=== PATIENT | female | born 1975 | race Two or more races ===

== ENCOUNTER 2024-02-23 18:05 | Emergency (ER) | payer MEDICAID ==
[~2024-02-23] VITALS: Ht 167.6 cm; Wt 99.8 kg
[2024-02-23] MEDS ORDERED: ACETAMINOPHEN 325 MG TABLET ONE (18:57)
[2024-02-23] MEDS: ACETAMINOPHEN 325 MG TABLET PO ONE (18:59)
[2024-02-23] MEDS ORDERED: IV NS 0.9% 250 ML IV ONE (19:18)
[2024-02-23] MEDS ORDERED: IOHEXOL-300 100 ML VIAL IV ONE (19:18)
[2024-02-23 19:47] LABS: BASOPHILS % (AUTO) 0.2 % (0.0-2.0); EOSINOPHILS # (AUTO) 0.1 K/uL (0.0-0.7); EOSINOPHILS % (AUTO) 0.9 % (0.0-6.0); HEMATOCRIT 34 % (33-45); HEMOGLOBIN 11.7 g/dL (11.5-14.8); LYMPHOCYTES % (AUTO) 22.9 % (20.0-44.0); MEAN CORPUSCULAR HEMOGLOBIN 28 PG (26.0-33.0); MEAN CORPUSCULAR HGB CONC 34 g/dl (31.0-36.0); MEAN CORPUSCULAR VOLUME 82 fL (82-100); MONOCYTES # (AUTO) 0.5 K/uL (0.1-1.30); MONOCYTES % (AUTO) 6.2 % (2.0-12.0); NEUTROPHILS # (AUTO) 6.1 K/uL (1.8-8.9); NEUTROPHILS % (AUTO) 69.8 % (43.0-81.0); PLATELET COUNT (AUTO) 276 K/uL (150-450); RED BLOOD CELL COUNT(AUTO) 4.18 MIL/uL (4.0-5.2); RED CELL DISTRIBUTION WIDTH 13.6 % (11.5-15.0); WHITE BLOOD COUNT (AUTO) 8.7 K/uL (4.3-11.0)
[2024-02-23 20:26] LABS: CALCIUM, SERUM 8.2 mg/dL (8.5-10.1); CREATININE 0.8 mg/dL (0.6-1.3); POTASSIUM 3.5 mmol/L (3.5-5.1)
[2024-02-23] MEDS ORDERED: IBUP-1955 PO (22:21)
[2024-02-23] MEDS ORDERED: METH-649 PO (22:21)
[2024-02-23] MEDS ORDERED: HYDR-4303 PO (22:21)
[2024-02-23] MEDS ORDERED: ACET325C7 PO (22:21)
[2024-02-23 23:45] VITALS: BP 143/88; TEMP 98.2; O2SAT 100
== END 2024-02-23 23:46 | disposition home or self-care (01) ==
LOC: ER 18:08
DX: S40.212A Abrasion of left shoulder, initial encounter (principal); R07.9 Chest pain, unspecified; M54.2 Cervicalgia; M54.6 Pain in thoracic spine; M54.50 Low back pain, unspecified; M25.562 Pain in left knee; E11.9 Type 2 diabetes mellitus without complications; Z79.899 Other long term (current) drug therapy; V43.52XA Car driver injured in collision with other type car in traffic accident, initial encounter; Y93.89 Activity, other specified; Y92.89 Other specified places as the place of occurrence of the external cause; Y99.8 Other external cause status
CPT/HCPCS: 99285; 72125; 73564; 73030; 71260; 70450; 74177; 85025; 80048; 36415; J7050; Q9967